=== PATIENT | male | born 1970 | race Two or more races ===

== ENCOUNTER 2019-05-27 00:30 | Emergency (ER) | payer BC ==
[~2019-05-27] VITALS: Ht 182.9 cm; Wt 80.7 kg
[2019-05-27 00:34] VITALS: BP 120/88
[2019-05-27] MEDS ORDERED: Isentress 400mg tab ORAL SCH (01:00)
[2019-05-27] MEDS ORDERED: ISENTRESS400 MG ORAL (01:04)
[2019-05-27] MEDS ORDERED: TRUVADA 200 MG1 EAC1 ORAL (01:04)
--- NOTE | 2019-05-27 01:04 | Emergency Room Report ---
History of Present Illness General Chief Complaint: General Complaint Source: Patient Present Illness HPI This is a 48-year-old male with no past medical history. He presents with chief complaint of HIV prophylaxis. About 48 hours ago, he was in [place] and has section of course with unknown female. He said he was wearing a condom and it broke. He was engaging in anal sex. He was concerned about possible HIV. He denies any other symptoms. No discharge. No history of STD. Denies any other complaint. Allergies: Coded Allergies: No Known Allergies (Unverified , 05/27/19) Patient History Past Medical History: none, see triage record, old chart reviewed Past Surgical History: other Pertinent Family History: none Social History: Denies: smoking Immunizations: other Reviewed Nursing Documentation: PMH: Agreed; PSxH: Agreed Nursing Documentation-PMH Past Medical History: No Stated History Hx Cardiac Problems: No Hx Hypertension: No Hx Pacemaker: No Hx Asthma: No Hx COPD: No Hx Diabetes: No Hx Cancer: No Hx Gastrointestinal Problems: No Hx Dialysis: No History Of Psychiatric Problem: No Hx Neurological Problems: No Hx Cerebrovascular Accident: No Hx Seizures: No Review of Systems Eye: Denies: eye pain, blurred vision ENT: Denies: ear pain, nose congestion, throat swelling Respiratory: Denies: cough, shortness of breath Cardiovascular: Denies: chest pain, palpitations Gastrointestinal: Denies: abdominal pain, diarrhea, nausea, vomiting Musculoskeletal: Denies: back pain, joint pain Skin: Denies: rash Neurological: Denies: headache, numbness Endocrine: Denies: increased thirst, increased urine Hematologic/Lymphatic: Denies: easy bruising All Other Systems: negative except mentioned in HPI Physical Exam Vital Signs Date Time Temp Pulse Resp B/P (MAP) Pulse Ox O2 Delivery O2 Flow Rate FiO2 05/27/19 00:34 97.9 75 17 120/88 (99) 97 Room Air Vitals normal Sp02 EP Interpretation: reviewed, normal General Appearance: well appearing, no apparent distress, alert Head: normocephalic, atraumatic Eyes: bilateral eye PERRL, bilateral eye EOMI ENT: hearing grossly normal, normal pharynx Neck: full range of motion, supple, no meningismus Respiratory: chest non-tender, lungs clear, normal breath sounds Cardiovascular #1: regular rate, rhythm, no murmur Gastrointestinal: normal bowel sounds, non tender, no mass, no organomegaly, no bruit, non-distended Musculoskeletal: back normal, normal range of motion, gait/station normal Psychiatric: mood/affect normal Medical Decision Making Diagnostic Impression: Primary Impression: History of exposure to hazardous bodily fluids ER Course Patient here for postexposure prophylaxis to HIV. He has no symptoms. HIV given here. Rapid HIV drawn. Advised patient for follow-up for recheck. Last Vital Signs Date Time Temp Pulse Resp B/P (MAP) Pulse Ox O2 Delivery O2 Flow Rate FiO2 05/27/19 00:34 97.9 75 17 120/88 (99) 97 Room Air Status: improved Disposition: HOME, SELF-CARE Condition: Stable Scripts Emtricitabine/Tenofovir 200-300MG* (TRUVADA 200-300MG*) 1 Each Tablet 1 TAB ORAL DAILY for 28 Days, TAB Prov: Vishal Horvath MD 05/27/19 Raltegravir (Isentress) 400 Mg Tablet 400 MG ORAL EVERY 12 HOURS for 28 Days, TAB Prov: Vishal Horvath MD 05/27/19 Referrals: NOT CHOSEN [facility]/,REFERRING (PCP) Additional Instructions: Follow-up with your doctor in 7 days as needed. You will need outpatient testing for HIV in 3 months and 6 months. Also recommend outpatient testing for other STDs. Return if symptoms worsen. Vishal Horvath MD May 27, 2019 01:04
[2019-05-27 01:16] VITALS: BP 120/88
== END 2019-05-27 01:16 | disposition home or self-care (01) ==
LOC: EMR 00:50
DX: Z77.21 Contact with and (suspected) exposure to potentially hazardous body fluids (principal)
CPT/HCPCS: 86703; 99283